=== PATIENT | male | born 1975 | race Caucasian/White ===

== ENCOUNTER 2020-02-18 20:43 | Emergency (ER) | payer SELFPAY ==
[2020-02-18 20:50] VITALS: BP 148/91; PULSE 83; RESP 18; TEMP 36.3; O2SAT 98; BMI 33.2
--- NOTE | 2020-02-18 21:54 | W.ED.SKABFB ---
HPI - Skin/Abscess/Foreign Bdy General: Chief complaint: Skin/Abscess/Foreign Body Stated complaint: bug bite/ thinks infected Time Seen by Provider: 02/18/20 21:50 Source: patient Mode of arrival: ambulatory Limitations: no limitations History of Present Illness: HPI narrative: Patient comes in with 2 cm area of erythema with punctate lesion centrally. Patient states that this evening it started draining purulent fluid. Patient reports some tenderness. Patient states his thought it might be a infected insect bite. Patient appears well. Patient appears no acute distress. Review of Systems General: Reports: 10 or more systems reviewed and unremarkable except in HPI and below Skin/Breast: Reports: other (Tender indurated skin lesion.) Physical Exam Const: COMMON NORMALS: no acute distress and patient oriented x3 GENERAL APPEARANCE: cooperative HENMT: COMMON NORMALS: normocephalic and Normal external nose present HEAD & SCALP: normal to inspection and normocephalic NOSE: Normal external nose present MOUTH: Normal oral and palatal mucosa present Eye: GENERAL EYE: appearance normal, both eyes and all related structures Neck/C-Spine: COMMON NORMALS: full ROM Chest: COMMONS NORMALS: normal inspection of the chest Resp: COMMON NORMALS: normal respiratory effort EFFORT & INSPECTION: Yes able to speak in complete sentences Cardio: COMMON NORMALS: regular rate and regular rhythm RATE: regular rate RHYTHM: regular rhythm GI: COMMON NORMALS: non-tender Back/Pelvis: COMMON NORMALS: thoracic and lumbar spine normal to inspection Extremity: COMMON NORMALS: normal to inspection Neuro: COMMON NORMALS: patient oriented x3 and moves all extremities Psych: COMMON NORMALS: mental status grossly normal and cooperative Skin: NARRATIVE SKIN EXAM: 2 cm area of erythema with no central fluctuance. Patient has some drainage from the central lesion. Purulent in nature. Course Vital Signs: Vital signs: Vital Signs Temperature 97.3 F L 02/18/20 20:50 Pulse Rate 83 02/18/20 20:50 Respiratory Rate 18 02/18/20 20:50 Blood Pressure 148/91 02/18/20 20:50 Pulse Oximetry 98 02/18/20 20:50 MDM - Skin/Abscess/Foreign Bdy MDM Narrative: Medical decision making narrative: Patient comes in for infected wound to the right knee. On exam we note a small erythematous, indurated area. Differential diagnosis includes cellulitis, abscess, insect bite. Reviewed exam with patient recommendations for treatment. Patient reported understanding. Discharge Plan Discharge Patient Disposition: Home Clinical Impression: Infected insect bite Qualifiers: Encounter type: initial encounter Qualified Code(s): W57.XXXA - Bitten or stung by nonvenomous insect and other nonvenomous arthropods, initial encounter Condition: Stable Prescriptions: New Bactrim DS 800-160 mg tablet 1 tab PO BID Qty: 20 RF: 0 mupirocin 2 % ointment 1 applic TOPICAL BID Qty: 22 RF: 0 Discharge Orders: Discharge Order (Routine); Ordered 02/18/20 Ordered By: Jude Yoo Discharge Activity: Increase activity as tolerated Patient Instructions: Cellulitis (ED) Activity Restrictions/Additional Instructions: Apply antibiotic ointment twice a day to wound site. Take antibiotic by mouth twice a day until healed. Drink plenty of water with medications. Monitor for worsening symptoms. Return to the ED as needed. Coding Level of Care Code ED Welding Machine Operator Resistance for Brandee Curran Exam Comprehensive
[2020-02-18] MEDS: sulfamethoxazole-trimeth DS 160-800 mg Tablet 1 TAB PO (22:17)
[2020-02-18] MEDS: mupirocin oint 22 gm 1 APPLIC TOPICAL (22:17)
[2020-02-18 22:19] VITALS: RESP 16
== END 2020-02-18 22:21 | disposition home or self-care (01) ==
PROVIDERS: Emergency Provider Nurse Practitioner Family
DX: S80.261A Insect bite (nonvenomous), right knee, initial encounter (principal); L08.9 Local infection of the skin and subcutaneous tissue, unspecified; W57.XXXA Bitten or stung by nonvenomous insect and other nonvenomous arthropods, initial encounter
CPT/HCPCS: 12345; 99281; 99282